=== PATIENT | female | born 1980 | race Caucasian/White ===

== ENCOUNTER 2020-08-06 13:55 | Emergency (ER) | payer OTHER ==
[2020-08-06 14:01] VITALS: BMI 24.5
--- OUTSIDE RECORDS SUMMARY | 2020-08-06 14:17 | XMS ---
:1980 Author Organization [facility] Support Name Relationship Address Phone SE Unavailable Unavailable Unavailable MEGHA ELLER SISTER [address] [place] [address] KEYONA KENT Unavailable [address] [place] [address] Re-disclosure Warning The records that you are about to access may contain information from federally- assisted alcohol or drug abuse programs. If such information is present, then the following federally mandated warning applies: This information has been disclosed to you from records protected by federal confidentiality rules (42 CFR part 2). The federal rules prohibit you from making any further disclosure of this information unless further disclosure is expressly permitted by the written consent of the person to whom it pertains or as otherwise permitted by 42 CFR part 2. A general authorization for the release of medical or other information is NOT sufficient for this purpose. The Federal rules restrict any use of the information to criminally investigate or prosecute any alcohol or drug abuse patient.The records that you are about to access may contain highly sensitive health information, the redisclosure of which is protected by Article 27-F of the [facility] Public Health law. If you continue you may haveaccess to information: Regarding HIV / AIDS; Provided by facilities licensed or operated by the [facility] Office of Mental Health; or Provided by the [facility] Office for People With Developmental Disabilities. If such information is present, then the following [facility] mandated warning applies: This information has been disclosed to you from confidential records which are protected by state law. State law prohibits you from making any further disclosure of this information without the specific written consent of the person to whom it pertains, or as otherwise permitted by law. Any unauthorized further disclosure in violation of state law may result in a fine or alf sentence or both. A general authorization for the release of medical or other information is NOT sufficient authorization for further disclosure. Insurance Providers Payer name Policy type Policy ID Covered Covered democrat's Policy P sam / Coverage democrat ID relationship to [employer] ormation type samuels SELF PAY SP INSURANCE
[2020-08-06 16:49] LABS: BASO % 0.7 % (0-2.0); EOS % 3.9 % (0-4.5); HEMATOCRIT 35.7 % (32.4-45.2); HEMOGLOBIN 11.8 GM/dL (10.7-15.3); LYMPH % 33.1 % (8-40); MCH 27.6 pg (25.7-33.7); MCHC 33.1 g/dl (32.0-36.0); MEAN CELL VOLUME 83.4 fl (80-96); MEAN PLT VOLUME 8.3 fl (7.5-11.1); MONO % 7.6 % (3.8-10.2); NEUT % 54.7 % (42.8-82.8); PLATELET COUNT 245 K/MM3 (134-434); RBC 4.28 M/mm3 (3.60-5.2); WHITE BLOOD COUNT 6.7 K/mm3 (4.0-10.0)
--- NOTE | 2020-08-06 17:01 | PDOC ---
History of Present Illness - General Chief Complaint: Pain Stated Complaint: LF SIDE BACK/LEG PAIN Time Seen by Provider: 08/06/20 14:34 History Source: Patient Exam Limitations: No Limitations - History of Present Illness Travel History: No Initial Comments: 08/06/20 17:03 39-year-old female presents ED with complaints of 7 days of right flank pain rat ing to the right suprapubic region. Patient states had to do virtual health visit and was prescribed Keflex and Bactrim due to complaints of frequent urination along with mild dysuria. Patient states completed it yesterday and her symptoms continue now with complaints of flank pain. Patient denies fever, chills, hematuria, or irregular menses. Timing/Duration: reports: changing over time Quality: reports: mild, cramping Abdominal Pain Onset Location: reports: flank Pain Radiation: reports: RLQ Activities at Onset: reports: none Aggravating Factors: improves with: None Alleviating Factors: improves with: None Past History - Travel History Traveled outside of the country in the last 30 days: No Close contact w/someone who was outside of country & ill: No - Medical History Allergies/Adverse Reactions: Allergies Allergy/AdvReac Type Severity Reaction Status Date / Time No Known Drug Allergies Allergy Verified 08/06/20 13:58 Home Medications: Ambulatory Orders NK [No Known Home Medication] 08/06/20 Anemia: No Asthma: No Cancer: No Cardiac Disorders: No CVA: No COPD: No CHF: No Dementia: No Diabetes: No GI Disorders: No Disorders: No HTN: No Hypercholesterolemia: No Liver Disease: No Seizures: No Thyroid Disease: No - Reproductive History Is Patient Now?: No - Immunization History Immunization Up to Date: No - Psycho-Social/Smoking History Patient Lives Alone: No Lives with/in: spouse/SO Smoking Status: No Smoking History: Never smoked Have you smoked in the past 12 months: No Number of Cigarettes Smoked Daily: 0 - Substance Abuse Hx (Audit-C & DAST Scrn) How often the patient has a drink containing alcohol: Never Score: In Men: 4 or > Positive; In Women: 3 or > Positive: 0 Screen Result (Pos requires Nsg. Audit-10AR): Negative Review of Systems - Review of Systems Able to Perform ROS?: Yes Constitutional: No: Symptoms Reported HEENTM: No: Symptoms Reported Respiratory: No: Symptoms reported Cardiac (ROS): No: Symptoms Reported ABD/GI: Yes: Abdominal cramping : Yes: Symptoms Reported, Frequency, Flank Pain Musculoskeletal: No: Symptoms Reported Integumentary: No: Symptoms Reported Neurological: No: Symptoms reported Endocrine: No: Symptoms Reported Hematologic/Lymphatic: No: Symptoms Reported *Physical Exam - Vital Signs Last Vital Signs Temp Pulse Resp BP Pulse Ox 98.5 F 86 18 117/81 99 08/06/20 13:59 08/06/20 13:59 08/06/20 13:59 08/06/20 13:59 08/06/20 13:59 - Physical Exam General Appearance: Yes: Nourished, Appropriately Dressed. No: Apparent Distress HEENT: negative: Pale Conjunctivae Neck: positive: Supple Respiratory/Chest: positive: Lungs Clear, Normal Breath Sounds. negative: Respiratory Distress, Accessory Muscle Use Cardiovascular: positive: Regular Rhythm, Regular Rate. negative: Murmur Female Pelvic Exam: positive: normal external exam. negative: discharge, vaginal bleeding Gastrointestinal/Abdominal: positive: Soft, Tenderness (Flank Suprapubic) Musculoskeletal: positive: CVA Tenderness (R) (Mild) Integumentary: positive: Normal Color, Warm, Moist Neurologic: positive: Motor Strength 5/5 (Ambulatory) ED Treatment Course - LABORATORY CBC & Chemistry Diagram: 08/06/20 16:20 08/06/20 16:20 Medical Decision Making - Medical Decision Making 08/06/20 17:06 Chief complaint: Patient with right flank pain now rating to right suprapubic. Patient states 7 days ago started with mild dysuria and frequency called for virtual health visit and was prescribed Keflex and Bactrim which she states did not improve her symptoms and now concern for her flank pain. Exam: Patient with right CVA tenderness along with right flank and right suprapubic tenderness. Plan: Urine, labs 08/06/20 19:09 CT shows no hydronephrosis. There is no definite urinary calculus. A 3 mm calcification seen in the inferior urinary bladder probably representing punctate soft tissue calcification is less likely a calculus within urethra. Patient will be given discharge instructions along with notification if urine culture is positive. 08/06/20 19:10 Laboratory Tests 08/06/20 08/06/20 08/06/20 16:10 16:20 16:20 WBC 6.7 RBC 4.28 Hgb 11.8 Hct 35.7 Absolute Neuts (auto) 3.7 Sodium 138 Potassium 3.8 Chloride 107 Carbon Dioxide 26 Anion Gap 5 L BUN 11.8 Creatinine 0.5 L Lipase Ur Specific Jewett 1.008 L Urine Protein Negative Urine Glucose (UA) Negative Urine Ketones Negative Urine Blood Negative Urine Nitrite Negative Urine Bilirubin Negative Ur Leukocyte Esterase Negative Urine HCG, Qual Negative 08/06/20 16:20 WBC RBC Hgb Hct Absolute Neuts (auto) Sodium Potassium Chloride Carbon Dioxide Anion Gap BUN Creatinine Lipase 121 Ur Specific Jewett Urine Protein Urine Glucose (UA) Urine Ketones Urine Blood Urine Nitrite Urine Bilirubin Ur Leukocyte Esterase Urine HCG, Qual Discharge - Discharge Information Problems reviewed: Yes Clinical Impression/Diagnosis: Urinary frequency Condition: Good Disposition: HOME - Follow up/Referral - Patient Discharge Instructions Additional Instructions: You will be notified of your urine culture was positive for infection. Otherwise your labs urine and ultrasound were essentially negative. - Post Discharge Activity
[2020-08-06 17:25] LABS: ALBUMIN 3.7 g/dl (3.4-5.0); BILIRUBIN,TOTAL 0.2 mg/dL (0.2-1); BLOOD UREA NITROGEN 11.8 mg/dL (7-18); CALCIUM 9.1 mg/dL (8.5-10.1); CREATININE 0.5 mg/dL (0.55-1.3); POTASSIUM 3.8 mmol/L (3.5-5.1); TOT PROT 7.6 g/dl (6.4-8.2)
[2020-08-06 17:35] LABS: URINE APPEARANCE CLEAR; URINE BILIRUBIN NEGATIVE (NEGATIVE); URINE COLOR YELLOW; URINE GLUCOSE (UA) NEGATIVE (NEGATIVE); URINE KETONE NEGATIVE (NEGATIVE); URINE LEUK ESTERASE NEGATIVE (NEGATIVE); URINE NITRITE NEGATIVE (NEGATIVE); URINE PROTEIN NEGATIVE (NEGATIVE); URINE UROBILINOGEN 0.2 mg/dL (0.2-1.0)
[2020-08-06 17:48] LABS: HCG,QUALITATIVE URINE Negative
[2020-08-06] MEDS ORDERED: KETOROLAC TROMETHAMINE 30 MG/1 ML VIAL IVPUSH ONE (18:26)
[2020-08-06] MEDS ORDERED: KETOROLAC TROMETHAMINE 30 MG/1 ML VIAL ONE (18:27)
[2020-08-06 19:34] VITALS: BP 118/72; PULSE 78; TEMP 97.8
== END 2020-08-06 19:15 | disposition home or self-care (01) ==
LOC: JER 13:55
PROC: 3E0333Z Introduction of Anti-inflammatory into Peripheral Vein, Percutaneous Approach (ICD-10-PCS; principal; 2020-08-06)
DX: R35.0 Frequency of micturition (principal)
CPT/HCPCS: 36415; 74176-TC; 80053; 81003; 83690; 84703; 85025; 87086; 99285-25

== ENCOUNTER 2021-06-14 19:20 | Emergency (ER) | payer OTHER ==
[2021-06-14 20:02] VITALS: TEMP 98.6; BMI 24.3
[2021-06-15 00:38] LABS: BASO % 0.3 % (0-2.0); EOS % 4.1 % (0-4.5); HEMATOCRIT 37.3 % (32.4-45.2); HEMOGLOBIN 12.5 GM/dL (10.7-15.3); MCH 27.5 pg (25.7-33.7); MCHC 33.6 g/dl (32.0-36.0); MEAN CELL VOLUME 81.8 fl (80-96); MEAN PLT VOLUME 7.6 fl (7.5-11.1); MONO % 6.7 % (3.8-10.2); NEUT % 58.9 % (42.8-82.8); PLATELET COUNT 242 10^3/uL (134-434); RBC 4.56 M/mm3 (3.60-5.2); RDW 17.5 % (11.6-15.6); WHITE BLOOD COUNT 9.2 K/mm3 (4.0-10.0)
[2021-06-15 00:46] LABS: INR 1.04 (0.83-1.09); PROTHROMBIN TIME (PATIENT) 12.8 SEC (9.7-13.0)
[2021-06-15 00:48] LABS: ACTIVATED PTT 31.5 SECONDS (25.2-36.5)
[2021-06-15 00:53] LABS: CHLORIDE 110 mmol/L (98-107); SODIUM 141 mmol/L (136-145)
[2021-06-15 00:55] LABS: CALCIUM 8.3 mg/dL (8.5-10.1)
[2021-06-15 00:56] LABS: ANION GAP 5 MMOL/L (8-16); BLOOD UREA NITROGEN 11.4 mg/dL (7-18); CO2 25 mmol/L (21-32); GLUCOSE,RANDOM 93 mg/dL (74-106); MAGNESIUM 2.5 mg/dL (1.8-2.4)
[2021-06-15 00:59] LABS: CREATININE 0.7 mg/dL (0.55-1.3); SGOT/AST 22 U/L (15-37); SGPT/ALT 28 U/L (13-61)
[2021-06-15 01:01] LABS: BILIRUBIN,TOTAL 0.3 mg/dL (0.2-1); TOT PROT 8.1 g/dl (6.4-8.2)
[2021-06-15 01:02] LABS: ALK PHOS 71 U/L (45-117)
[2021-06-15 02:03] VITALS: BP 155/96; PULSE 61
== END 2021-06-15 03:00 | disposition home or self-care (01) ==
LOC: JER 19:20
DX: R07.9 Chest pain, unspecified (principal); I10 Essential (primary) hypertension
CPT/HCPCS: 36415; 71046-TC-FY; 80053; 82550; 83735; 84443; 84484; 84703; 85025; 85379; 85610; 85730; 93005; 93010; 99285-25

== ENCOUNTER 2024-07-04 20:21 | Emergency (ER) | payer SELFPAY ==
[2024-07-04 20:29] VITALS: BP 151/96; PULSE 69; RESP 20; TEMP 98.4; BMI 23.6
[2024-07-04 21:19] LABS: PH,URINE 7.5 (5.0-8.0); URINE APPEARANCE CLEAR; URINE BILIRUBIN NEGATIVE (NEGATIVE); URINE COLOR YELLOW; URINE GLUCOSE (UA) NEGATIVE (NEGATIVE); URINE KETONE NEGATIVE (NEGATIVE); URINE LEUK ESTERASE NEGATIVE (NEGATIVE); URINE NITRITE NEGATIVE (NEGATIVE); URINE PROTEIN NEGATIVE (NEGATIVE); URINE UROBILINOGEN 0.2 mg/dL (0.2-1.0)
[2024-07-04] MEDS ORDERED: FLUCONAZOLE 150 MG TABLET PO ONE (22:05)
[2024-07-04] MEDS: FLUCONAZOLE 150 MG TABLET PO ONE (22:08)
[2024-07-04 22:12] LABS: HCG,QUALITATIVE URINE Negative
== END 2024-07-04 22:09 | disposition home or self-care (01) ==
LOC: JER 20:21
DX: R10.2 Pelvic and perineal pain (principal); M54.50 Low back pain, unspecified
CPT/HCPCS: 81003; 84703; 87077; 87086; 99283-25